=== PATIENT | female | born 1985 | race Caucasian/White ===

== ENCOUNTER 2018-06-19 14:04 | Emergency (ER) | payer MEDICAID ==
[2018-06-19 14:05] VITALS: BMI 31.1
[2018-06-19 14:20] VITALS: TEMP 98.4
[2018-06-19 14:57] LABS: BASO # 0.03 K/mm3 (0.0-2.0); BASO % 0.2 % (0.0-3.0); EOS # 0.3 (0.0-0.7); GRAN # 9.62 (1.4-6.5); GRAN % 68.4 % (50.0-68.0); HEMOGLOBIN 13.7 g/dL (12.0-16.0); LYMPH # 3.4 (1.2-3.4); LYMPH % 23.9 % (22.0-35.0); MEAN CELL VOLUME 91.2 fl (80.0-105.0); MEAN CORPUSCULAR HEMOGLOBIN 30.3 pg (25.0-35.0); MEAN CORPUSCULAR HGB CONC 33.3 g/dl (31.0-37.0); MEAN PLATELET VOLUME 11.7 fl (7.0-11.0); MONO # 0.8 (0.1-0.6); MONO % 5.5 % (1.0-6.0); RBC 4.52 10^6/uL (3.5-6.1); RED CELL DISTRIBUTION WIDTH 13.6 % (11.5-14.5); WHITE BLOOD COUNT 14.1 10^3/ul (4.5-11.0)
[2018-06-19 15:11] LABS: ALB/GLOB RATIO 1.4 (1.1-1.8); ALT/SGPT 36 U/L (7-56); AST/SGOT 27 U/L (14-36); BLOOD UREA NITROGEN 10 mg/dL (7-21); CALCIUM 9.3 mg/dL (8.4-10.5); GFR NON-AFRICAN AMERICAN > 60
[2018-06-19 15:12] LABS: ACETAMINOPHEN < 10.0 ug/ml (10.0-20.0); SALICYLATE < 1 mg/dL (2.0-20.0)
[2018-06-19 15:38] VITALS: RESP 18
[2018-06-19 15:40] LABS: URINE BILIRUBIN NEGATIVE (NEGATIVE); URINE BLOOD NEGATIVE (NEGATIVE); URINE GLUCOSE (UA) NEGATIVE (NEGATIVE); URINE LEUKOCYTE ESTERASE NEGATIVE Leu/uL (NEGATIVE); URINE PROTEIN NEGATIVE mg/dL (<30 mg/dL); URINE UROBILINOGEN 0.2 E.U./dL (<1 E.U./dL)
[2018-06-19 15:42] LABS: BARBITURATES, UR NEGATIVE (NEGATIVE); BENZODIAZEPINES, UR NEGATIVE (NEGATIVE); OPIATES, UR NEGATIVE (NEGATIVE); PHENCYCLIDINE, UR POSITIVE (NEGATIVE); URINE APPEARANCE CLEAR (CLEAR); URINE COLOR YELLOW (YELLOW)
--- NOTE | 2018-06-19 15:57 | ED PDOC ---
Arrival/HPI - General Historian: Patient - History of Present Illness Time/Duration: Prior to Arrival <Joyce Lindo A - Last Filed: 06/19/18 17:47> <Broderick Hameed - Last Filed: 06/22/18 02:22> - General Chief Complaint: Psychiatric Evaluation Time Seen by Provider: 06/19/18 14:27 - History of Present Illness Narrative History of Present Illness (Text): 06/19/18 14:27 33 year old female, who denies any past medical or psychiatric history, presents to the emergency department brought in by [facility] for suicidal ideation. Patient is currently incarcerated and states that she wants to kill herself. Patient informs that she is distraught since it is the 2 year anniversary of her son's murder. Patient denies any homicidal ideation, hallucination, somatic complaints, or any other complaints. (Joyce Lindo A) Past Medical History - Provider Review Nursing Documentation Reviewed: Yes - Cardiac Hx Cardiac Disorders: No - Pulmonary Hx Respiratory Disorders: Yes Hx Asthma: Yes - Neurological Hx Neurological Disorder: No - HEENT Hx HEENT Disorder: No - Renal Hx Renal Disorder: No - Endocrine/Metabolic Hx Endocrine Disorders: No - Hematological/Oncological Hx Blood Disorders: No - Integumentary Hx Dermatological Disorder: No - Musculoskeletal/Rheumatological Hx Musculoskeletal Disorders: No - Gastrointestinal Hx Gastrointestinal Disorders: No - Genitourinary/Gynecological Hx Genitourinary Disorders: No - Psychiatric Hx Psychophysiologic Disorder: Yes Hx Bipolar Disorder: Yes Hx Schizophrenia: Yes Hx Substance Use: Yes (MARIJUANA) - Surgical History Other/Comment: LEEP PROCEDURE - Anesthesia Hx Anesthesia: Yes - Suicidal Assessment Feels Threatened In Home Enviroment: No <Joyce Lindo A - Last Filed: 06/19/18 17:47> Family/Social History - Physician Review Nursing Documentation Reviewed: Yes Family/Social History: No Known Family HX Smoking Status: Light Smoker < 10 Cigarettes Daily Hx Alcohol Use: Yes Hx Substance Use: Yes (MARIJUANA) Substance used: marajuana <Joyce Lindo A - Last Filed: 06/19/18 17:47> Allergies/Home Meds <Joyce Lindo A - Last Filed: 06/19/18 17:47> <Broderick Hameed - Last Filed: 06/22/18 02:22> Allergies/Adverse Reactions: Allergies No Known Allergies Allergy (Verified 06/19/18 14:14) Home Medications: Home Meds Medication Instructions Recorded Confirmed No Known Home Med 06/19/18 06/19/18 Review of Systems - Physician Review All systems were reviewed & negative as marked: Yes - Review of Systems Constitutional: Normal Eyes: Normal ENT: Normal Respiratory: Normal Cardiovascular: Normal Gastrointestinal: Normal Genitourinary Female: Normal Musculoskeletal: Normal Skin: Normal Neurological: Normal Endocrine: Normal Hemo/Lymphatic: Normal Psychiatric: Normal, Suicidal Ideation. absent: Other (hallucinations) <Diru,Happiness A - Last Filed: 06/19/18 17:47> Physical Exam Vital Signs Reviewed: Yes Temperature: Afebrile Blood Pressure: Normal Pulse: Regular Respiratory Rate: Normal Appearance: Positive for: Well-Appearing, Non-Toxic, Comfortable Pain Distress: None Mental Status: Positive for: Alert and Oriented X 3 - Systems Exam Head: Present: Atraumatic, Normocephalic Pupils: Present: PERRL Extroacular Muscles: Present: EOMI Conjunctiva: Present: Normal Mouth: Present: Moist Mucous Membranes Neck: Present: Normal Range of Motion Respiratory/Chest: Present: Clear to Auscultation, Good Air Exchange. No: Respiratory Distress, Accessory Muscle Use Cardiovascular: Present: Regular Rate and Rhythm, Normal S1, S2. No: Murmurs Abdomen: No: Tenderness, Distention, Peritoneal Signs Back: Present: Normal Inspection Upper Extremity: Present: Normal Inspection. No: Cyanosis, Edema Lower Extremity: Present: Normal Inspection. No: Edema Neurological: Present: GCS=15, CN II-XII Intact, Speech Normal Skin: Present: Warm, Dry, Normal Color. No: Rashes Psychiatric: Present: Alert, Oriented x 3, Agitated, Suicidal Ideation, Other ( belligerent) <Diru,Happiness A - Last Filed: 06/19/18 17:47> Vital Signs Temp Pulse Resp BP Pulse Ox 06/19/18 17:00 98.4 F 77 18 133/79 98 06/19/18 15:37 85 18 114/74 97 06/19/18 14:15 98.4 F 90 16 112/78 98 Medical Decision Making <Diru,Happiness A - Last Filed: 06/19/18 17:47> <Broderick Hameed - Last Filed: 06/22/18 02:22> ED Course and Treatment: 06/19/18 14:27 Impression: 33 year old female presents by [facility] for suicidal ideation. Plan: -- Reassess and disposition Prior Visits: Notes and results from previous visits were reviewed. Progress Notes: 06/19/18 14:30 Pending psychiatric evaluation. 06/19/18 17:50 Labs was reviewed. UDS + PCP, THC Pt was medically cleared for psych evaluation and was seen by WARNER Aguayo. He DC with Dr. Neville and pt was discharged for outpt f/u. (Diru, Happiness A) - Lab Interpretations Lab Results: 06/19/18 14:43 06/19/18 14:43 Lab Results 06/19/18 15:00: Urine Opiates Screen Negative, Urine Methadone Screen Negative, Ur Barbiturates Screen Negative, Ur Phencyclidine Scrn Positive H, Ur Amphetamines Screen Negative, U Benzodiazepines Scrn Negative, U Oth Cocaine Metabols Negative, U Cannabinoids Screen Positive H 06/19/18 15:00: Urine Color Yellow, Urine Appearance Clear, Urine pH 6.0, Ur Specific [place] 1.025, Urine Protein Negative, Urine Glucose (UA) Negative, Urine Ketones Negative, Urine Blood Negative, Urine Nitrate Negative, Urine Bilirubin Negative, Urine Urobilinogen 0.2, Ur Leukocyte Esterase Negative 06/19/18 14:43: Alcohol, Quantitative < 10 06/19/18 14:43: Salicylates < 1 L, Acetaminophen < 10.0 L 06/19/18 14:43: Sodium 139, Potassium 4.0, Chloride 106, Carbon Dioxide 27, Anion Gap 10, BUN 10, Creatinine 0.8, Est GFR ( Amer) > 60, Est GFR (Non- Af Amer) > 60, Random Glucose 109, Calcium 9.3, Magnesium 2.2, Total Bilirubin 0.3, AST 27, ALT 36, Alkaline Phosphatase 67, Total Protein 7.0, Albumin 4.0, Globulin 3.0, Albumin/Globulin Ratio 1.4 06/19/18 14:43: WBC 14.1 H, RBC 4.52, Hgb 13.7, Hct 41.2, MCV 91.2, MCH 30.3, MCHC 33.3, RDW 13.6, Plt Count 233, MPV 11.7 H, Gran % 68.4 H, Lymph % (Auto) 23.9, Eddy % (Auto) 5.5, Eos % (Auto) 2.0, Baso % (Auto) 0.2, Gran # 9.62 H, Lymph # (Auto) 3.4, Eddy # (Auto) 0.8 H, Eos # (Auto) 0.3, Baso # (Auto) 0.03 - Scribe Statement The provider has reviewed the documentation as recorded by the Scribe <Joyce Lindo - Last Filed: 06/19/18 17:47> - PA / [employer] / Resident Statement / has reviewed & agrees with the documentation as recorded. <Broderick Hameed - Last Filed: 06/22/18 02:22> - Scribe Statement Rj Rader All medical record entries made by the Scribe were at my direction and personally dictated by me. I have reviewed the chart and agree that the record accurately reflects my personal performance of the history, physical exam, medical decision making, and the department course for this patient. I have also personally directed, reviewed, and agree with the discharge instructions and disposition. (Joyce Lindo) Disposition/Present on Arrival - Present on Arrival Any Indicators Present on Arrival: No History of DVT/PE: No History of Uncontrolled Diabetes: No Urinary Catheter: No History of Decub. Ulcer: No History Surgical Site Infection Following: None - Disposition Have Diagnosis and Disposition been Completed?: Yes Disposition Time: 17:50 Patient Plan: Discharge <Joyce Lindo - Last Filed: 06/19/18 17:47> <Broderick Hameed - Last Filed: 06/22/18 02:22> - Disposition Diagnosis: Depression, Drug intoxication Disposition: HOME/ ROUTINE Condition: STABLE Discharge Instructions (ExitCare): Depression Additional Instructions: Follow up with your doctor/[facility] Return to ED for any new symptoms Medically and Mentally cleared for incarceration Referrals: [facility] [[facility]] - Follow up with primary Forms: [employer] (Armenian)
[2018-06-19 17:59] VITALS: BP 133/79; PULSE 77; O2SAT 98
== END 2018-06-19 17:59 | disposition home or self-care (01) ==
LOC: ED 14:04
DX: F32.9 Major depressive disorder, single episode, unspecified (principal); F19.129 Other psychoactive substance abuse with intoxication, unspecified